=== PATIENT | male | born 1990 | race Caucasian/White ===

== ENCOUNTER 2018-12-11 19:56 | Emergency (ER) | payer BC, SELFPAY ==
[2018-12-11 19:57] VITALS: BP 128/84; PULSE 86; RESP 16; TEMP 37; O2SAT 97; BMI 34.0
[2018-12-11] MEDS: Tetracaine 0.5% Ophthalmic Bottle 1 DRP RIGHT EYE (21:58)
--- NOTE | 2018-12-11 22:40 | ED.DCSUM_ITS ---
- ER Visit Summary Date of Service: 12/11/18 Chief Complaint: Foreign body right eye History of Present Illness: The patient is a 28 M who presents with foreign body to his right eye that occurred yesterday. Patient states he was grinding on metal when something got into his eye. Patient states he was wearing his regular glasses but not safety glasses. Patient admits to some watery drainage. Patient admits to some redness and burning. Patient denies any visual changes. Patient states it still feels like there is something in his right eye. Patient wears glasses but does not wear contact lenses. Physical Examination: Vital signs are stable. Patient is afebrile. Patient is in no acute distress. Pupils are equal, round, and reactive to light bilaterally. Extraocular muscles are intact. Conjunctiva was injected on the right. There is a metallic foreign body on the lateral aspect of the right cornea at the 9 o'clock position. Anterior chamber was clear. There is no hyphema. Funduscopic exam was benign. Emergency Department Course and Treatment: Tetracaine was applied to the right eye. The metallic foreign body was removed with ophthalmic bur. There is a residual rust ring noted. I attempted to remove the rust ring however there is still some of the rust ring remaining. I do not feel comfortable going any further with the ophthalmic bur. Patient was given erythromycin ophthalmic ointment. Patient was instructed to follow-up with ophthalmology in 1-3 days. Patient was given a prescription for erythromycin ophthalmic ointment. Patient understood and was agreeable with the plan. All questions were answered. Disposition: Discharge home Impression: Corneal foreign body right eye This note was generated with [employer] dictation software. It may contain incorrect words, spelling, and punctuation that were not noted in review of the chart prior to signing ED Disposition - Plan for ED Patient: Disposition: Home or Assisted Living Chief Complaint: Foreign Body Diagnosis: Foreign body in cornea, right eye, initial encounter Instructions: ED Foreign Body Cornea Prescriptions: Erythromycin Ophthalmic 1 applic RIGHT EYE TID 3 Days #1 tube Referrals: Tesfaye Hernandez MD [Primary Care Provider] - Raheel Bishop MD [STAFF PHYSICIAN] - Additional Instructions: Follow-up with ophthalmology in 1-3 days. Call tomorrow to schedule an appointment.
[2018-12-11] MEDS: Diphth,Pertuss(Acell),Tet Vac 0.5 ML Vial IM (22:47)
[2018-12-11] MEDS: Erythromycin Base 1 OPTH.TUBE 1 APPLIC RIGHT EYE (23:19)
[2018-12-11 23:20] VITALS: BP 133/91; PULSE 80; RESP 16; O2SAT 98
--- OUTSIDE RECORDS SUMMARY | 2019-02-12 23:52 | XMS RPT_ITS ---
:1990 Author Organization [facility] Care Team Providers Name Role Phone JUANITA MOODY Attending Unavailable JUANITA MOODY Referring Unavailable JUANITA MOODY Attending Unavailable JUANITA MOODY Referring Unavailable MARY GONCALVES (PA) Attending Unavailable MARY GONCALVES (PA) Referring Unavailable JUANITA MOODY Referring Unavailable MARY GONCALVES (PA) Attending Unavailable JUANITA MOODY Referring Unavailable MARY GONCALVES (PA) Referring Unavailable Jose Alfredo Garcia Attending Unavailable Juanita Moody Primary Care Unavailable PROBLEMS PROBLEMS DATE TYPE CONDITION / CODE ATTENDING STATUS SOURCE 07/04/2018 Active Other abnormal NA Active [facility] glucose / [place] R73.09(ICD-10) Repository 08/29/2018 Active Radiculopathy, NA Active [facility] lumbar region / [place] M54.16(ICD-10) Repository 08/29/2018 Active Unspecified fall, NA Active [facility] initial encounter [place] / W19.XXXA(ICD-10) Repository 06/07/2018 Active Essential NA Active [facility] (primary) [place] hypertension / Repository I10(ICD-10) 06/07/2018 Active Encounter for NA Active [facility] screening for [place] diabetes mellitus Repository / Z13.1(ICD-10) 06/07/2018 Active Unknown / JUANITA MOODY Active [facility] UNK(Unknown) A [place] Repository PROCEDURES PROCEDURES No Procedure Records FoundRESULTS RESULTS EMERGENCY DEPARTMENT Observed: 12/11/2018 Status: F Source: [place] SUMMARY 10:40 PM [facility] [place], [place] REPOSITORY [facility] Medical Records Department [address] [place] [address] Emergency Department Summary 12/11/18 2234 MR#: [id number] Acct: [id number] Name: NATHALIA GALARZA Rep #: [id number] : 1990 28 From: Jose Alfredo Garcia DO PCP: Juanita Moody MD Status: REG ER - ER Visit Summary Date of Service: 12/11/18 Chief Complaint: Foreign body right eye History of Present Illness: The patient is a 28 M who presents with foreign body to his right eye that occurred yesterday. Patient states he was grinding on metal when something got into his eye. Patient states he was wearing his regular glasses but not safety glasses. Patient admits to some watery drainage. Patient admits to some redness and burning. Patient denies any visual changes. Patient states it still feels like there is something in his right eye. Patient wears glasses but does not wear contact lenses. Physical Examination: Vital signs are stable. Patient is afebrile. Patient is in no acute distress. Pupils are equal, round, and reactive to light bilaterally. Extraocular muscles are intact. Conjunctiva was injected on the right. There is a metallic foreign body on the lateral aspect of the right cornea at the 9 o'clock position. Anterior chamber was clear. There is no hyphema. Funduscopic exam was benign. Emergency Department Course and Treatment: Tetracaine was applied to the right eye. The metallic foreign body was removed with ophthalmic bur. There is a residual rust ring noted. I attempted to remove the rust ring however there is still some of the rust ring remaining. I do not feel comfortable going any further with the ophthalmic bur. Patient was given erythromycin ophthalmic ointment. Patient was instructed to follow-up with ophthalmology in 1-3 days. Patient was given a prescription for erythromycin ophthalmic ointment. Patient understood and was agreeable with the plan. All questions were answered. Disposition: Discharge home Impression: Corneal foreign body right eye This note was generated with Linkdex dictation software. It may contain incorrect words, spelling, and punctuation that were not noted in review of the chart prior to signing ED Disposition - Plan for ED Patient: Disposition: Home or Assisted Living Chief Complaint: Foreign Body Diagnosis: Foreign body in cornea, right eye, initial encounter Instructions: ED Foreign Body Cornea Prescriptions: Erythromycin Ophthalmic 1 applic RIGHT EYE TID 3 Days #1 tube Referrals: Juanita Moody MD [Primary Care Provider] - Raheel Bishop MD [STAFF PHYSICIAN] - Additional Instructions: Follow-up with ophthalmology in 1-3 days. Call tomorrow to schedule an appointment. What to do if you have Problems For any increased pain, shortness of breath, bleeding, nausea or vomiting, chest pain, or any unexpected problems, contact your Primary Care Provider. Call [facility] ([phone]) or report to the closest Emergency Room. Call 911 if necessary. 12/11/18 0 <Electronically signed by Jose Alfredo Garcia DO> Date Jose Alfredo Garcia DO Cosigner Signature (If Indicated): Date CC: Juanita Moody MD PROGRESS Observed: 11/28/2018 Status: COMPLETED Source: [place] 9:[address] [facility] [place] REPOSITORY [facility] ID: [id number] Author: Hair Yarbrough LPN Service: (none) Author Type: (none) Type: Progress Notes Filed: 11/28/2018 9:28 AM Note Text: Manual Readin/88 Pulse: 88 Reason for blood pressure check - Medication adjustment. Lisinopril was increased from 10mg to 20mg on 11/07/18 at OV with Sacha d/t pt was having headaches AND dizziness upon standing. Pt reports med has helped to improve symptoms, has headaches occasionally if he stands up too quickly or he is trying to do something quickly, MCKINNEY goes away right away. Next appt 03/06/19 with RRobinson. Pt is not a smoker, pt is alert AND oriented. Patient is: Taking medication as prescribed Yes Took medication today Yes If no, date medication last taken na Experiencing side effects No Pt has been identified by name and birthdate: Yes Allergies reviewed: Yes Latex allergy: no. Medication - prescribed and OTC reviewed and updated: Yes Do you need any prescription refills prior to your next visit: No Health Maintenance: Reviewed and not up to date and provider notified Pt aware he will receive phone call from office after pcp reviews BP reading today. Hair Yarbrough LPN CNNURSE Observed: 11/28/2018 Status: COMPLETED Source: [place] 9:15 AM [facility] REPOSITORY Nurse Visit (FAMPWS) NATHALIA GALARZA ([id number]) 1990 M Date Time Provider Department [facility]/28[facility]18 9[facility] During your visit today, we recorded the following information about you: Pulse Blood pressure 88/minute 120/88 Hair Yarbrough LPN 11/28/2018 9:28 AM Signed Manual Readin/88 Pulse: 88 Reason for blood pressure check - Medication adjustment. Lisinopril was increased from 10mg to 20mg on 11/07/18 at OV with Sacha d/agustina pt was having headaches AND dizziness upon standing. Pt reports med has helped to improve symptoms, has headaches occasionally if he stands up too quickly or he is trying to do something quickly, MCKINNEY goes away right away. Next appt 03/06/19 with Fedeon. Pt is not a smoker, pt is alert AND oriented. Patient is: Taking medication as prescribed Yes Took medication today Yes If no, date medication last taken na Experiencing side effects No Pt has been identified by name and birthdate: Yes Allergies reviewed: Yes Latex allergy: no. Medication - prescribed and OTC reviewed and updated: Yes Do you need any prescription refills prior to your next visit: No Health Maintenance: Reviewed and not up to date and provider notified Pt aware he will receive phone call from office after pcp reviews BP reading today. Hair Yarbrough LPN Referring Provider: MARY GONCALVES(WATSON) [[id number]] Allergies As of Date: 11/28/2018 Noted Allergy Reaction IBUPROFEN 06/07/2018 4 - Hives Date Reviewed: 11/28/2018 Reviewed by: Hair Yarbrough LPN - Fully Assessed Reason for Visit: Blood Pressure Check [195] Visit Diagnosis:Hypertension, essential [I10] Prescriptions as of 11/28/2018 Sig: CYCLOBENZAPRINE 10 MG TABLET Take 1 tablet by mouth three * LISINOPRIL 20 MG TABLET Take 1 tablet by mouth once d* Problem List As Of Date 11/28/2018 Noted Resolved Encounter for screening for diabetes mellitus [*INVALID FOR* Essential hypertension [I10] INVALID FOR* Elevated hemoglobin A1c [R73.09] INVALID FOR* Encounter Status:Closed by HAIR YARBROUGH LPN on 11/28/18 PROGRESS Observed: 11/07/2018 Status: COMPLETED Source: [place] 8:[address] [facility] [place] REPOSITORY [facility] ID: [id number] Author: Heather Goncalves Service: (none) Author Type: Physician Pretzel Cooker Type: Progress Notes Filed: 11/07/2018 9:29 AM Note Text: Chief Complaint Patient presents with: Recheck HPI Nathalia Galarza is a 28 year old male who presents here today for Chronic Medical Conditions.. Patient was started on lisinopril 10mg. Has been tolerating. Does not check at home Recently has been getting more headaches again. Worse with activity then goes away when he rests. Hgb a1c has gone up to 6.1. He does not monitor his diet at home. Last 4 Encounter Wt Readings: Date: Wt: 11/07/2018 115.2 kg (254 lb) 08/29/2018 108.9 kg (240 lb) 07/04/2018 107 kg (236 lb) 06/07/2018 107 kg (236 lb) Back is still causing him pain. Works a physical job on a farm. Past medical history, appointments, medications, allergies reviewed. Previous Medical History PAST MEDICAL HISTORY Diagnosis Date - Essential hypertension 06/07/2018 Previous Surgical History PAST SURGICAL HISTORY Procedure Laterality Date - APPENDECTOMY HX 05/28/2016 Family History FAMILY HISTORY Problem Relation Age of Onset - Hypertension Mother - Hypertension Father - Prostate Cancer Paternal Grandfather 70 - Ovarian cancer Maternal Aunt - Diabetes Maternal Aunt Patient Allergies ALLERGIES Allergen Reactions - Ibuprofen Hives Current Medications Current Outpatient Prescriptions on File Prior to Visit: cyclobenzaprine (FLEXERIL) 10 mg tablet Take 1 tablet by mouth three times daily as needed for Muscle Spasm. lisinopril (ZESTRIL, PRINIVIL) 10 mg tablet Take 1 tablet by mouth once daily. No current facility-administered medications on file prior to visit. Social History Social History Marital status: Spouse name: Years of education: Number of children: Social History Main Topics Smoking status: Never Smoker Smokeless tobacco: Never Used Alcohol use: No Drug use: No Sexual activity: Yes Partners with: Female control/protection: Pill Review of Symptoms REVIEW OF SYSTEMS As above. EXAM: BP 134/88 Pulse 76 Resp 12 Wt 115.2 kg (254 lb) BMI 34.45 kg/m? General Appearance: Well appearing, alert, in no acute distress, well-hydrated, well nourished.. Neck: Supple, no adenopathy; thyroid symmetric, normal size, no bruits. Lungs: lungs clear to auscultation. No wheezing, rhonchi, rales. Heart: RRR without murmur, gallop, or rubs. No ectopy. Extremities: No deformities, edema, skin discoloration, clubbing or cyanosis. Good capillary refill. . Peripheral Pulses: Normal. Health Maintenance List BP CONTROLLED (<130/80) due on 2009 DTAP,TDAP,TD(1 - Tdap) due on 2010 ANNUAL PCP TEAM CHRONIC DISEASE VISIT due on 08/29/2019 INFLUENZA Completed Data reviewed Component Latest Ref Rng AND Units 06/07/2018 11/05/2018 Protein, Total 6.3 - 8.0 g/dL 7.6 Albumin 3.9 - 4.9 g/dL 4.5 Calcium 8.5 - 10.2 mg/dL 9.7 Bilirubin, Total 0.2 - 1.3 mg/dL 0.4 Alkaline Phosphatase 36 - 108 U/L 69 AST 14 - 40 U/L 28 Glucose 74 - 99 mg/dL 84 BUN 9 - 24 mg/dL 10 Creatinine 0.73 - 1.22 mg/dL 1.08 Sodium 136 - 144 mmol/L 137 Potassium 3.7 - 5.1 mmol/L 4.0 Chloride 97 - 105 mmol/L 100 CO2 22 - 30 mmol/L 28 Anion Gap 9 - 18 mmol/L 9 ALT 10 - 54 U/L 39 eGFR- >60 eGFR-All Other Races . >60 Color Yellow Yellow Clarity Clear Cloudy (A) Glucose, Urine Negative mg/dL Negative Bilirubin, Urine Negative Negative Ketones, Urine Negative Negative Specific [place], Ur 1.005 - 1.030 1.025 Hemoglobin/Blood,Ur Negative Negative pH, Urine 4.5 - 8.0 6.0 Protein, Urine Negative mg/dL Negative Urobilinogen Normal Normal Nitrites Negative Negative Leukest Negative Negative Comments SEE COMMENT Urine Haresh Comment SEE COMMENT WBC, Urine 0 - 5 /HPF 0-5 RBC, Urine 0 - 3 /HPF 0-3 Crystal 0 /HPF SEE COMMENT (A) Cholesterol, Total <200 mg/dL 206 (H) Triglyceride <150 mg/dL 153 (H) HDL Cholesterol >39 mg/dL 46 LDL Cholesterol <100 mg/dL 129 (H) Non HDL Cholesterol <130 mg/dL 160 (H) Fasting Time hrs 14 VLDL Cholesterol <30 mg/dL 31 (H) TC:HDL Ratio <5.10 4.48 LDL:HDL Ratio <2.54 2.80 (H) Hemoglobin A1C 4.3 - 5.6 % 5.8 (H) 6.1 (H) Estimated Average Glucose mg/dL 120 128 ASSESSMENT/PLAN: 1. Essential hypertension - ICD9: 401.9, ICD10: I10 (primary diagnosis) - suboptimal control - Worsening, possibly due to significant weight gain - Increase lisinopril (Zestril/Prinivil) - Recommended regular aerobic exercise. - Recommend home blood pressure monitoring, to bring results in on next visit - Goal of BP <130/80 - URINALYSIS WITH MICROSCOPIC - BASIC METABOLIC PNL 2. Elevated hemoglobin A1c - ICD9: 790.29, ICD10: R73.09 Worse compared to last check Discussed importance of healthy lifestyle changes and decreasing carb and sugars - HGB A1C 3. Hyperlipidemia, mixed - ICD9: 272.2, ICD10: E78.2 - to be determined upon return of lab results - Encouraged following a low carbohydrate, healthy oil intake diet. - Continue current therapy. - LIPID PANEL BASIC 4. Recurrent low back pain - ICD9: 724.2, ICD10: M54.5 Discussed Physical Therapy but patient declines Patient can take OTC aleve prn 5. Obesity, Class I, BMI 30-34.9 - ICD9: 278.00, ICD10: E66.9 20pound weight gain in 4-6months Discussed need and benefit of weight loss Recheck BP in 3 weeks Follow up with OV in 4 months. Labs prior. MARY GONCALVES PA-C CNOV Observed: 11/07/2018 Status: COMPLETED Source: [place] 8:00 AM [facility] REPOSITORY Office Visit (FAMPWS) NATHALIA GALARZA ([id number]) 1990 M Date Time Provider Department 11/07/18 8:00 AM RADHA GONCALVES) FAMPWS During your visit today, we recorded the following information about you: Pulse Respiration Blood pressure Weight 76/minute 12/minute 134/88 115.2 kg MARY GONCALVES PA-C 11/07/2018 9:29 AM Signed Chief Complaint Patient presents with: Recheck HPI Nathalia Ana Youagustina is a 28 year old male who presents here today for Chronic Medical Conditions.. Patient was started on lisinopril 10mg. Has been tolerating. Does not check at home Recently has been getting more headaches again. Worse with activity then goes away when he rests. Hgb a1c has gone up to 6.1. He does not monitor his diet at home. Last 4 Encounter Wt Readings: Date: Wt: 11/07/2018 115.2 kg (254 lb) 08/29/2018 108.9 kg (240 lb) 07/04/2018 107 kg (236 lb) 06/07/2018 107 kg (236 lb) Back is still causing him pain. Works a physical job on a farm. Past medical history, appointments, medications, allergies reviewed. Previous Medical History PAST MEDICAL HISTORY Diagnosis Date - Essential hypertension 06/07/2018 Previous Surgical History PAST SURGICAL HISTORY Procedure Laterality Date - APPENDECTOMY HX 05/28/2016 Family History FAMILY HISTORY Problem Relation Age of Onset - Hypertension Mother - Hypertension Father - Prostate Cancer Paternal Grandfather 70 - Ovarian cancer Maternal Aunt - Diabetes Maternal Aunt Patient Allergies ALLERGIES Allergen Reactions - Ibuprofen Hives Current Medications Current Outpatient Prescriptions on File Prior to Visit: cyclobenzaprine (FLEXERIL) 10 mg tablet Take 1 tablet by mouth three times daily as needed for Muscle Spasm. lisinopril (ZESTRIL, PRINIVIL) 10 mg tablet Take 1 tablet by mouth once daily. No current facility-administered medications on file prior to visit. Social History Social History Marital status: Spouse name: Years of education: Number of children: Social History Main Topics Smoking status: Never Smoker Smokeless tobacco: Never Used Alcohol use: No Drug use: No Sexual activity: Yes Partners with: Female control/protection: Pill Review of Symptoms REVIEW OF SYSTEMS As above. EXAM: BP 134/88 Pulse 76 Resp 12 Wt 115.2 kg (254 lb) BMI 34.45 kg/m? General Appearance: Well appearing, alert, in no acute distress, well-hydrated, well nourished.. Neck: Supple, no adenopathy; thyroid symmetric, normal size, no bruits. Lungs: lungs clear to auscultation. No wheezing, rhonchi, rales. Heart: RRR without murmur, gallop, or rubs. No ectopy. Extremities: No deformities, edema, skin discoloration, clubbing or cyanosis. Good capillary refill. . Peripheral Pulses: Normal. Health Maintenance List BP CONTROLLED (<130/80) due on 2009 DTAP,TDAP,TD(1 - Tdap) due on 2010 ANNUAL PCP TEAM CHRONIC DISEASE VISIT due on 08/29/2019 INFLUENZA Completed Data reviewed Component Latest Ref Rng AND Units 06/07/2018 11/05/2018 Protein, Total 6.3 - 8.0 g/dL 7.6 Albumin 3.9 - 4.9 g/dL 4.5 Calcium 8.5 - 10.2 mg/dL 9.7 Bilirubin, Total 0.2 - 1.3 mg/dL 0.4 Alkaline Phosphatase 36 - 108 U/L 69 AST 14 - 40 U/L 28 Glucose 74 - 99 mg/dL 84 BUN 9 - 24 mg/dL 10 Creatinine 0.73 - 1.22 mg/dL 1.08 Sodium 136 - 144 mmol/L 137 Potassium 3.7 - 5.1 mmol/L 4.0 Chloride 97 - 105 mmol/L 100 CO2 22 - 30 mmol/L 28 Anion Gap 9 - 18 mmol/L 9 ALT 10 - 54 U/L 39 eGFR- >60 eGFR-All Other Races . >60 Color Yellow Yellow Clarity Clear Cloudy (A) Glucose, Urine Negative mg/dL Negative Bilirubin, Urine Negative Negative Ketones, Urine Negative Negative Specific [place], Ur 1.005 - 1.030 1.025 Hemoglobin/Blood,Ur Negative Negative pH, Urine 4.5 - 8.0 6.0 Protein, Urine Negative mg/dL Negative Urobilinogen Normal Normal Nitrites Negative Negative Leukest Negative Negative Comments SEE COMMENT Urine Haresh Comment SEE COMMENT WBC, Urine 0 - 5 /HPF 0-5 RBC, Urine 0 - 3 /HPF 0-3 Crystal 0 /HPF SEE COMMENT (A) Cholesterol, Total <200 mg/dL 206 (H) Triglyceride <150 mg/dL 153 (H) HDL Cholesterol >39 mg/dL 46 LDL Cholesterol <100 mg/dL 129 (H) Non HDL Cholesterol <130 mg/dL 160 (H) Fasting Time hrs 14 VLDL Cholesterol <30 mg/dL 31 (H) TC:HDL Ratio <5.10 4.48 LDL:HDL Ratio <2.54 2.80 (H) Hemoglobin A1C 4.3 - 5.6 % 5.8 (H) 6.1 (H) Estimated Average Glucose mg/dL 120 128 ASSESSMENT/PLAN: 1. Essential hypertension - ICD9: 401.9, ICD10: I10 (primary diagnosis) - suboptimal control - Worsening, possibly due to significant weight gain - Increase lisinopril (Zestril/Prinivil) - Recommended regular aerobic exercise. - Recommend home blood pressure monitoring, to bring results in on next visit - Goal of BP <130/80 - URINALYSIS WITH MICROSCOPIC - BASIC METABOLIC PNL 2. Elevated hemoglobin A1c - ICD9: 790.29, ICD10: R73.09 Worse compared to last check Discussed importance of healthy lifestyle changes and decreasing carb and sugars - HGB A1C 3. Hyperlipidemia, mixed - ICD9: 272.2, ICD10: E78.2 - to be determined upon return of lab results - Encouraged following a low carbohydrate, healthy oil intake diet. - Continue current therapy. - LIPID PANEL BASIC 4. Recurrent low back pain - ICD9: 724.2, ICD10: M54.5 Discussed Physical Therapy but patient declines Patient can take OTC aleve prn 5. Obesity, Class I, BMI 30-34.9 - ICD9: 278.00, ICD10: E66.9 20pound weight gain in 4-6months Discussed need and benefit of weight loss Recheck BP in 3 weeks Follow up with OV in 4 months. Labs prior. WATSON LIMA PA-C 11/07/2018 8:44 AM Signed Return in 3 weeks for BP check Follow up in 4 months for routine visit. Fasting lab work prior. Referring Provider: JUANITA MOODY [[id number]] Allergies As of Date: 11/07/2018 Noted Allergy Reaction IBUPROFEN 06/07/2018 4 - Hives Date Reviewed: 11/07/2018 Reviewed by: Radha) Sacha - Fully Assessed Reason for Visit: Recheck [92] Primary Visit Diagnosis:Essential hypertension [I10] Other Visit Diagnoses:Elevated hemoglobin A1c [R73.09] Hyperlipidemia, mixed [E78.2] Recurrent low back pain [M54.5] Obesity, Class I, BMI 30-34.9 [E66.9] Order(s):cyclobenzaprine (FLEXERIL) 10 mg tabletTake 1 tablet by mouth three times daily as needed for Muscle Spasm.Disp: 30 tabletRfl: 1 lisinopril (ZESTRIL, PRINIVIL) 20 mg tabletTake 1 tablet by mouth once daily.Disp: 30 tabletRfl: 3 HGB A1C [CSCRT2F] Order #: [id number] FUTURE URINALYSIS WITH MICROSCOPIC [SQUAWMIC] Order #: [id number] FUTURE BASIC METABOLIC PNL [SQBMP] Order #: [id number] FUTURE LIPID PANEL BASIC [SQLIPB] Order #: [id number] FUTURE Prescriptions as of 11/07/2018 Sig: CYCLOBENZAPRINE 10 MG TABLET Take 1 tablet by mouth three * LISINOPRIL 20 MG TABLET Take 1 tablet by mouth once d* Problem List As Of Date 11/07/2018 Noted Resolved Encounter for screening for diabetes mellitus [*INVALID FOR* Essential hypertension [I10] INVALID FOR* Elevated hemoglobin A1c [R73.09] INVALID FOR* Other instructions from your clinician: Return in 3 weeks for BP check Follow up in 4 months for routine visit. Fasting lab work prior. Prescriptions ordered this encounter Disp Refills Start End CYCLOBENZAPRINE 10 MG TABLET 30 t* 1 11/07/2018 Route: ORAL Sig: Take 1 tablet by mouth three times daily as needed for Muscle Spasm. LISINOPRIL 20 MG TABLET 30 t* 3 11/07/2018 Route: ORAL Sig: Take 1 tablet by mouth once daily. Medications Discontinued During This Encounter cyclobenzaprine (FLEXERIL) 10 mg tab* 30 t* 0 08/29/2018 11/07/2018 Route: ORAL Sig: Take 1 tablet by mouth three times daily as needed for Muscle Spasm. Disc: Reason for discontinue is not on file. lisinopril (ZESTRIL, PRINIVIL) 10 mg* 30 t* 5 06/07/2018 11/07/2018 Route: ORAL Sig: Take 1 tablet by mouth once daily. Disc: Reason for discontinue is not on file. Disposition: Return in about 3 weeks (around 11/28/2018) for [place] BP CHECK. Follow-up and Disposition History Recorded Encounter Status:Closed by MARY CHANCE on 11/07/18 HEMOGLOBIN A1C Collected: 11/05/2018 Status: F Source: [place] 3:23 PM [facility] REPOSITORY TYPE CODE TESTS RESULT OUT OF REFERENCE UNITS RANGE LAB HGBA1C 4.3-5.6 % High Hemoglobin A1c 6.1 Result Comment: [place] [employer] guidelines indicate that patients with HgbA1c in the range 5.7-6.4% are at increased risk for development of diabetes, and intervention by lifestyle modification may be beneficial. HgbA1c greater or equal to 6.5% is considered diagnostic of diabetes. LAB HBA0 mg/dL Est. Average Glucose 128 Result Comment: eAG: (Estimated average glucose) is a calculated value from HgbA1c and is traveling sales representative of the average blood glucose level in the last 2-3 month period. Performed By: #### HBA1C #### [facility] [address] [place], [place] [address] XR LUMBAR 3V Observed: 08/29/2018 Status: F Source: [place] AP/LAT/L5-S1 9:35 AM [facility] REPOSITORY * * *Final Report* * * DATE OF EXAM: Aug 29 2018 9:35AM WOX [id number] - XR LUMBAR 3V AP/LAT/L5-S1 / PROCEDURE REASON: multiple diagnoses * * * * Physician Interpretation * * * * LUMBAR SPINE/sacrum and coccyx: HISTORY: 28 years old Indication: Lumbar back pain with radiculopathy affecting left lower extremity Fall, initial encounter Fell off a truck last Monday. right posterior low back pain TECHNIQUE: Views obtained: XR SACRUM/COCCYX 3V AP/LAT, XR LUMBAR 3V AP/LAT/L5-S1 Comparison: None. RESULT: Findings: Lumbar spine: Bone density well-preserved. Mild degenerative changes in the facet joints L5-S1 level bilaterally. No narrowing of the disk spaces is seen. Mild S scoliosis with convexity to the RIGHT in the lumbar region.. No fractures or dislocations are seen. Sacrum and coccyx: No fractures or dislocations. IMPRESSION: Mild degenerative changes. Mild S-shaped scoliosis as discussed Line Tester: BELEN Transcribe Date/Time: Aug 29 2018 12:44P Dictated by : DAX WILSON DO This examination was interpreted and the report reviewed and electronically signed by: DAX WILSON DO on Aug 29 2018 12:45PM EST [id number] XR SACRUM/COCCYX 3V Observed: 08/29/2018 Status: F Source: [place] AP/LAT 9:35 AM [facility] REPOSITORY * * *Final Report* * * DATE OF EXAM: Aug 29 2018 9:35AM WOX [id number] - XR SACRUM/COCCYX 3V AP/LAT / PROCEDURE REASON: multiple diagnoses * * * * Physician Interpretation * * * * LUMBAR SPINE/sacrum and coccyx: HISTORY: 28 years old Indication: Lumbar back pain with radiculopathy affecting left lower extremity Fall, initial encounter Fell off a truck last Monday. right posterior low back pain TECHNIQUE: Views obtained: XR SACRUM/COCCYX 3V AP/LAT, XR LUMBAR 3V AP/LAT/L5-S1 Comparison: None. RESULT: Findings: Lumbar spine: Bone density well-preserved. Mild degenerative changes in the facet joints L5-S1 level bilaterally. No narrowing of the disk spaces is seen. Mild S scoliosis with convexity to the RIGHT in the lumbar region.. No fractures or dislocations are seen. Sacrum and coccyx: No fractures or dislocations. IMPRESSION: Mild degenerative changes. Mild S-shaped scoliosis as discussed Line Tester: BELEN Transcribe Date/Time: Aug 29 2018 12:44P Dictated by : DAX WILSON DO This examination was interpreted and the report reviewed and electronically signed by: DAX WILOSN DO on Aug 29 2018 12:45PM EST [id number] PROGRESS Observed: 08/29/2018 Status: COMPLETED Source: [place] 9:22 AM [facility] REPOSITORY HNO ID: [id number] Author: Rosey Machado Service: (none) Author Type: (none) Type: Progress Notes Filed: 08/29/2018 9:36 AM Note Text: Radiology Service Progress Note PATIENT NAME: Nathalia Galarza DATE OF SERVICE: August 29, 2018 TIME: 9:22 AM PATIENT IDENTITY VERIFICATION COMPLETED USING TWO (2) METHODS: Patient confirmed name verbally and Date of . PATIENT GENDER DATA: Male PATIENT RELEVANT IMPLANT DATA REVIEWED: Not Applicable RADIOLOGY DEPARTMENT: General X-ray: Exam(s) Completed: Spine X-Ray(s): Lumbar AP / LAT / L5-S1 and Sacrum/Coccyx PERIPHERAL IV DATA: Not applicable SIGNED BY: Rosey Machado August 29, 2018 9:22 AM PROGRESS Observed: 08/29/2018 Status: COMPLETED Source: [place] 8:54 AM [facility] REPOSITORY HNO ID: [id number] Author: Heather Goncalves Service: (none) Author Type: Physician Pretzel Cooker Type: Progress Notes Filed: 08/29/2018 9:47 AM Note Text: Chief Complaint Patient presents with: Pain: Patient is here for lower back; x couple months; back popped got lighted headed. HPI Nathalia Galarza is a 28 year old male who presents here today for Above Complaints.. Has had back pain for the past couple months. 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 Last week was lifting at work (08/23) and felt a pop Symptoms are center and radiates into left side more. Some numbness in legs. Has been using icy hot which does help. Bending over or getting up makes pain worse. Denies loss of bowel or urine Past medical history, appointments, medications, allergies reviewed. Previous Medical History PAST MEDICAL HISTORY Diagnosis Date - Essential hypertension 06/07/2018 Previous Surgical History PAST SURGICAL HISTORY Procedure Laterality Date - APPENDECTOMY HX 05/28/2016 Family History FAMILY HISTORY Problem Relation Age of Onset - Hypertension Mother - Hypertension Father - Prostate Cancer Paternal Grandfather 70 - Ovarian cancer Maternal Aunt - Diabetes Maternal Aunt Patient Allergies ALLERGIES Allergen Reactions - Ibuprofen Hives Current Medications Current Outpatient Prescriptions on File Prior to Visit: lisinopril (ZESTRIL, PRINIVIL) 10 mg tablet Take 1 tablet by mouth once daily. No current facility-administered medications on file prior to visit. Social History Social History Marital status: Spouse name: Years of education: Number of children: Social History Main Topics Smoking status: Never Smoker Smokeless tobacco: Never Used Alcohol use: No Drug use: No Sexual activity: Yes Partners with: Female control/protection: Pill Review of Symptoms REVIEW OF SYSTEMS NECK: Negative for lumps, goiter, pain and significant neck swelling MUSCULOSKELETAL:See HPI NEURO: No history of headaches, syncope, paralysis, seizures or tremors and see HPI EXAM: BP 128/86 (BP Site: Left Arm, BP Position: Sitting, BP Cuff Size: Large Adult) Pulse 86 Temp 36.9 ?C (98.4 ?F) (Tympanic) Resp 14 Wt 108.9 kg (240 lb) BMI 32.55 kg/m? General Appearance: Well appearing, alert, in no acute distress, well-hydrated, well nourished.. Musculoskeletal: Pain with palp of low mid back and left lateral paraspinous muscles. SLR pos for pain only. Decreased Lumbar ROM due to pain. NVI. Peripheral Pulses: Normal. Neurologic: Gait normal. Reflexes normal and symmetric. Sensation grossly intact.. Health Maintenance List DTAP,TDAP,TD(1 - Tdap) due on 2010 ANNUAL PCP TEAM CHRONIC DISEASE VISIT due on 07/04/2019 BP CONTROLLED (<130/80) due on 07/04/2019 INFLUENZA Completed Data reviewed n/a ASSESSMENT/PLAN: 1. Lumbar back pain with radiculopathy affecting left lower extremity - ICD9: 724.4, ICD10: M54.16 (primary diagnosis) Acute on chronic Post injury so will get x-ray X-ray today Start prednisone and muscle relaxer. - XR LUMBAR GENERAL 3V AP/LAT/L5-S1 - XR SACRUM/COCCYX 3V AP/LAT 2. Fall, initial encounter - ICD9: E888.9, ICD10: W19.XXXA See above - XR LUMBAR GENERAL 3V AP/LAT/L5-S1 - XR SACRUM/COCCYX 3V AP/LAT Prescription instructions reviewed with patient as applicable. Patient advised if symptoms do not improve or if symptoms worsen sooner, to contact their primary care physician. Potential red flag symptoms discussed with the patient. Reviewed appropriate action plan to take if red flag symptoms occur. Patient agreeable to treatment plan. MARY GONCALVES PA-C CNOV Observed: 08/29/2018 Status: COMPLETED Source: [place] 8:40 AM [facility] REPOSITORY Office Visit ([facility]) NATHALIA GALARZA ([id number]) 1990 M Date Time Provider Department 08/29/18 8:40 AM RADHA GONCALVES) [facility] During your visit today, we recorded the following information about you: Temperature Pulse Respiration Blood pressure 98.4 degrees 86/minute 14/minute 128/86 Weight 108.9 kg MARY GONCALVES PA-C 08/29/2018 9:47 AM Signed Chief Complaint Patient presents with: Pain: Patient is here for lower back; x couple months; back popped got lighted headed. ANIL Nathalia Caseyedgardoagustina is a 28 year old male who presents here today for Above Complaints.. Has had back pain for the past couple months. 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 Last week was lifting at work (08/23) and felt a pop Symptoms are center and radiates into left side more. Some numbness in legs. Has been using icy hot which does help. Bending over or getting up makes pain worse. Denies loss of bowel or urine Past medical history, appointments, medications, allergies reviewed. Previous Medical History PAST MEDICAL HISTORY Diagnosis Date - Essential hypertension 06/07/2018 Previous Surgical History PAST SURGICAL HISTORY Procedure Laterality Date - APPENDECTOMY HX 05/28/2016 Family History FAMILY HISTORY Problem Relation Age of Onset - Hypertension Mother - Hypertension Father - Prostate Cancer Paternal Grandfather 70 - Ovarian cancer Maternal Aunt - Diabetes Maternal Aunt Patient Allergies ALLERGIES Allergen Reactions - Ibuprofen Hives Current Medications Current Outpatient Prescriptions on File Prior to Visit: lisinopril (ZESTRIL, PRINIVIL) 10 mg tablet Take 1 tablet by mouth once daily. No current facility-administered medications on file prior to visit. Social History Social History Marital status: Spouse name: Years of education: Number of children: Social History Main Topics Smoking status: Never Smoker Smokeless tobacco: Never Used Alcohol use: No Drug use: No Sexual activity: Yes Partners with: Female control/protection: Pill Review of Symptoms REVIEW OF SYSTEMS NECK: Negative for lumps, goiter, pain and significant neck swelling MUSCULOSKELETAL:See HPI NEURO: No history of headaches, syncope, paralysis, seizures or tremors and see HPI EXAM: BP 128/86 (BP Site: Left Arm, BP Position: Sitting, BP Cuff Size: Large Adult) Pulse 86 Temp 36.9 ?C (98.4 ?F) (Tympanic) Resp 14 Wt 108.9 kg (240 lb) BMI 32.55 kg/m? General Appearance: Well appearing, alert, in no acute distress, well-hydrated, well nourished.. Musculoskeletal: Pain with palp of low mid back and left lateral paraspinous muscles. SLR pos for pain only. Decreased Lumbar ROM due to pain. NVI. Peripheral Pulses: Normal. Neurologic: Gait normal. Reflexes normal and symmetric. Sensation grossly intact.. Health Maintenance List DTAP,TDAP,TD(1 - Tdap) due on 2010 ANNUAL PCP TEAM CHRONIC DISEASE VISIT due on 07/04/2019 BP CONTROLLED (<130/80) due on 07/04/2019 INFLUENZA Completed Data reviewed n/a ASSESSMENT/PLAN: 1. Lumbar back pain with radiculopathy affecting left lower extremity - ICD9: 724.4, ICD10: M54.16 (primary diagnosis) Acute on chronic Post injury so will get x-ray X-ray today Start prednisone and muscle relaxer. - XR LUMBAR GENERAL 3V AP/LAT/L5-S1 - XR SACRUM/COCCYX 3V AP/LAT 2. Fall, initial encounter - ICD9: E888.9, ICD10: W19.XXXA See above - XR LUMBAR GENERAL 3V AP/LAT/L5-S1 - XR SACRUM/COCCYX 3V AP/LAT Prescription instructions reviewed with patient as applicable. Patient advised if symptoms do not improve or if symptoms worsen sooner, to contact their primary care physician. Potential red flag symptoms discussed with the patient. Reviewed appropriate action plan to take if red flag symptoms occur. Patient agreeable to treatment plan. WATSON LIMA PA-C 08/29/2018 9:13 AM Signed Follow up in 2 weeks if no improvement Sooner if worsening. Referring Provider: SELF [[id number]] Allergies As of Date: 08/29/2018 Noted Allergy Reaction IBUPROFEN 06/07/2018 4 - Hives Date Reviewed: 07/04/2018 Reviewed by: Juanita Moody - Fully Assessed Reason for Visit: Pain [78] Cmt: Patient is here for lower back; x couple months; back popped got lighted headed. Primary Visit Diagnosis:Lumbar back pain with radiculopathy affecting left lower extremity [M54.16] Other Visit Diagnosis:Fall, initial encounter [W19.XXXA] Order(s):predniSONE (DELTASONE) 10 mg tabletTake 4 tabs daily for 3 days, then 2 tabs daily for 3 days, then 1 tab daily for 3 days with food.Disp: 21 tabletRfl: 0 XR LUMBAR GENERAL 3V AP/LAT/L5-S1 [[id number]] Order #: [id number] FUTURE XR SACRUM/COCCYX 3V AP/LAT [[id number]] Order #: [id number] FUTURE cyclobenzaprine (FLEXERIL) 10 mg tabletTake 1 tablet by mouth three times daily as needed for Muscle Spasm.Disp: 30 tabletRfl: 0 Prescriptions as of 08/29/2018 Sig: LISINOPRIL 10 MG TABLET Take 1 tablet by mouth once d* PREDNISONE 10 MG TABLET Take 4 tabs daily for 3 days,* CYCLOBENZAPRINE 10 MG TABLET Take 1 tablet by mouth three * Problem List As Of Date 08/29/2018 Noted Resolved Encounter for screening for diabetes mellitus [*INVALID FOR* Essential hypertension [I10] INVALID FOR* Priority: A Elevated hemoglobin A1c [R73.09] INVALID FOR* Other instructions from your clinician: Follow up in 2 weeks if no improvement Sooner if worsening. Prescriptions ordered this encounter Disp Refills Start End PREDNISONE 10 MG TABLET 21 t* 0 08/29/2018 09/07/2018 Sig: Take 4 tabs daily for 3 days, then 2 tabs daily for 3 days, then 1 tab daily for 3 days with food. CYCLOBENZAPRINE 10 MG TABLET 30 t* 0 08/29/2018 Route: ORAL Sig: Take 1 tablet by mouth three times daily as needed for Muscle Spasm. Disposition: Return in about 2 weeks (around 09/12/2018), or if symptoms worsen or fail to improve. Follow-up and Disposition History Recorded Letter Text Mary Goncalves PA-C [address], [place] [address] 08/29/2018 Nathalia Galarza [facility]# [id number] [address] TO WHOM IT MAY CONCERN: This is to certify that Mr. Nathalia Galarza has been under my care for injury and was unable to work from 08/29/18 through 09/12/18. Sincerely yours, Mary Goncalves PA-C Encounter Status:Closed by MARY CHANCE on 08/29/18 PROGRESS Observed: 07/04/2018 Status: COMPLETED Source: [place] 4:56 PM [facility] RE[facility] O ID: [id number] Author: Juanita Moody Service: (none) Author Type: Physician Type: Progress Notes Filed: 07/04/2018 9:39 PM Note Text: Chief Complaint Patient presents with: Recheck: 4 weeks HTN HPI Nathalia Galarza is a 28 year old male who presents here today for Above Complaints.. Patient diagnosed with HTN and placed on lisinopril. No issues with medication. Past medical history, appointments, medications, allergies reviewed. Previous Medical History PAST MEDICAL HISTORY Diagnosis Date - Essential hypertension 06/07/2018 Previous Surgical History PAST SURGICAL HISTORY Procedure Laterality Date - APPENDECTOMY HX 05/28/2016 Family History FAMILY HISTORY Problem Relation Age of Onset - Hypertension Mother - Hypertension Father - Prostate Cancer Paternal Grandfather 70 - Ovarian cancer Maternal Aunt - Diabetes Maternal Aunt Patient Allergies ALLERGIES Allergen Reactions - Ibuprofen Hives Current Medications Current Outpatient Prescriptions on File Prior to Visit: lisinopril (ZESTRIL, PRINIVIL) 10 mg tablet Take 1 tablet by mouth once daily. No current facility-administered medications on file prior to visit. Social History Social History Marital status: Spouse name: Years of education: Number of children: Social History Main Topics Smoking status: Never Smoker Smokeless tobacco: Never Used Alcohol use: No Drug use: No Sexual activity: Yes Partners with: Female control/protection: Pill Review of Symptoms REVIEW OF SYSTEMS RESPIRATORY: Negative for cough, hemoptysis, wheezing, COPD, dyspnea or shortness of breath CARDIOVASCULAR: Negative for chest pain, leg swelling, hypertension, CHF or palpitations NEURO: No history of syncope, paralysis, seizures or tremors. Has had a few headaches. EXAM: BP 142/84 (BP Site: Right Arm, BP Position: Sitting, BP Cuff Size: Large Adult) Pulse 80 Resp 14 Wt 107 kg (236 lb) BMI 32.01 kg/m? Last 5 Encounter BP Readings: Date: BP: 07/04/2018 118/78 06/07/2018 142/96 General Appearance: Well appearing, alert, in no acute distress, well-hydrated, well nourished.. Neck: Supple, no adenopathy; thyroid symmetric, normal size, no bruits. Lungs: Lungs clear to auscultation. No wheezing, rhonchi, rales. Heart: RRR without murmur, gallop, or rubs. No ectopy. Extremities: No deformities, edema. Health Maintenance List BLOOD PRESSURE CONTROLLED due on 2009 DTAP,TDAP,TD(1 - Tdap) due on 2010 INFLUENZA(1) due on 07/21/2018 ANNUAL PCP TEAM CHRONIC DISEASE VISIT due on 06/07/2019 Data reviewed Component Latest Ref Rng AND Units 06/07/2018 Protein, Total 6.3 - 8.0 g/dL 7.6 Albumin 3.9 - 4.9 g/dL 4.5 Calcium 8.5 - 10.2 mg/dL 9.7 Bilirubin, Total 0.2 - 1.3 mg/dL 0.4 Alkaline Phosphatase 36 - 108 U/L 69 AST 14 - 40 U/L 28 Glucose 74 - 99 mg/dL 84 BUN 9 - 24 mg/dL 10 Creatinine 0.73 - 1.22 mg/dL 1.08 Sodium 136 - 144 mmol/L 137 Potassium 3.7 - 5.1 mmol/L 4.0 Chloride 97 - 105 mmol/L 100 CO2 22 - 30 mmol/L 28 Anion Gap 9 - 18 mmol/L 9 ALT 10 - 54 U/L 39 eGFR- >60 eGFR-All Other Races . >60 Color Yellow Yellow Clarity Clear Cloudy (A) Glucose, Urine Negative mg/dL Negative Bilirubin, Urine Negative Negative Ketones, Urine Negative Negative Specific [place], Ur 1.005 - 1.030 1.025 Hemoglobin/Blood,Ur Negative Negative pH, Urine 4.5 - 8.0 6.0 Protein, Urine Negative mg/dL Negative Urobilinogen Normal Normal Nitrites Negative Negative Leukest Negative Negative Comments SEE COMMENT Urine Haresh Comment SEE COMMENT WBC, Urine 0 - 5 /HPF 0-5 RBC, Urine 0 - 3 /HPF 0-3 Crystal 0 /HPF SEE COMMENT (A) Cholesterol, Total <200 mg/dL 206 (H) Triglyceride <150 mg/dL 153 (H) HDL Cholesterol >39 mg/dL 46 LDL Cholesterol <100 mg/dL 129 (H) Non HDL Cholesterol <130 mg/dL 160 (H) Fasting Time hrs 14 VLDL Cholesterol <30 mg/dL 31 (H) TC:HDL Ratio <5.10 4.48 LDL:HDL Ratio <2.54 2.80 (H) Hemoglobin A1C 4.3 - 5.6 % 5.8 (H) Estimated Average Glucose mg/dL 120 A/P ASSESSMENT/PLAN: 1. Essential hypertension - ICD9: 401.9, ICD10: I10 (primary diagnosis) - good control Improved control. Parameters of monitoring explained to patient. - Continue current medication(s) - Recommended regular aerobic exercise. - Recommend home blood pressure monitoring, to bring results in on next visit - Goal of BP <140/90 2. Elevated hemoglobin A1c - ICD9: 790.29, ICD10: R73.09 - discussed tania dietary changes and weight loss. - Recheck A1c prior to next visit. F/u 4 months check A1c prior Juanita Moody MD CNOV Observed: 07/04/2018 Status: COMPLETED Source: [place] 4:20 PM [facility] REPOSITORY [facility]AL[facility] ([id number]) 1990 M Date Time Provider Department 07/04/18 4:20 PM JUANITA MOODY During your visit today, we recorded the following information about you: Pulse Respiration Blood pressure Weight 80/minute 14/minute 118/78 107 kg Juanita Moody MD 07/04/2018 9:39 PM Signed Chief Complaint Patient presents with: Recheck: 4 weeks HTN HPI Nathalia Galarza is a 28 year old male who presents here today for Above Complaints.. Patient diagnosed with HTN and placed on lisinopril. No issues with medication. Past medical history, appointments, medications, allergies reviewed. Previous Medical History PAST MEDICAL HISTORY Diagnosis Date - Essential hypertension 06/07/2018 Previous Surgical History PAST SURGICAL HISTORY Procedure Laterality Date - APPENDECTOMY HX 05/28/2016 Family History FAMILY HISTORY Problem Relation Age of Onset - Hypertension Mother - Hypertension Father - Prostate Cancer Paternal Grandfather 70 - Ovarian cancer Maternal Aunt - Diabetes Maternal Aunt Patient Allergies ALLERGIES Allergen Reactions - Ibuprofen Hives Current Medications Current Outpatient Prescriptions on File Prior to Visit: lisinopril (ZESTRIL, PRINIVIL) 10 mg tablet Take 1 tablet by mouth once daily. No current facility-administered medications on file prior to visit. Social History Social History Marital status: Spouse name: Years of education: Number of children: Social History Main Topics Smoking status: Never Smoker Smokeless tobacco: Never Used Alcohol use: No Drug use: No Sexual activity: Yes Partners with: Female control/protection: Pill Review of Symptoms REVIEW OF SYSTEMS RESPIRATORY: Negative for cough, hemoptysis, wheezing, COPD, dyspnea or shortness of breath CARDIOVASCULAR: Negative for chest pain, leg swelling, hypertension, CHF or palpitations NEURO: No history of syncope, paralysis, seizures or tremors. Has had a few headaches. EXAM: BP 142/84 (BP Site: Right Arm, BP Position: Sitting, BP Cuff Size: Large Adult) Pulse 80 Resp 14 Wt 107 kg (236 lb) BMI 32.01 kg/m? Last 5 Encounter BP Readings: Date: BP: 07/04/2018 118/78 06/07/2018 142/96 General Appearance: Well appearing, alert, in no acute distress, well-hydrated, well nourished.. Neck: Supple, no adenopathy; thyroid symmetric, normal size, no bruits. Lungs: Lungs clear to auscultation. No wheezing, rhonchi, rales. Heart: RRR without murmur, gallop, or rubs. No ectopy. Extremities: No deformities, edema. Health Maintenance List BLOOD PRESSURE CONTROLLED due on 2009 DTAP,TDAP,TD(1 - Tdap) due on 2010 INFLUENZA(1) due on 07/21/2018 ANNUAL PCP TEAM CHRONIC DISEASE VISIT due on 06/07/2019 Data reviewed Component Latest Ref Rng AND Units 06/07/2018 Protein, Total 6.3 - 8.0 g/dL 7.6 Albumin 3.9 - 4.9 g/dL 4.5 Calcium 8.5 - 10.2 mg/dL 9.7 Bilirubin, Total 0.2 - 1.3 mg/dL 0.4 Alkaline Phosphatase 36 - 108 U/L 69 AST 14 - 40 U/L 28 Glucose 74 - 99 mg/dL 84 BUN 9 - 24 mg/dL 10 Creatinine 0.73 - 1.22 mg/dL 1.08 Sodium 136 - 144 mmol/L 137 Potassium 3.7 - 5.1 mmol/L 4.0 Chloride 97 - 105 mmol/L 100 CO2 22 - 30 mmol/L 28 Anion Gap 9 - 18 mmol/L 9 ALT 10 - 54 U/L 39 eGFR- >60 eGFR-All Other Races . >60 Color Yellow Yellow Clarity Clear Cloudy (A) Glucose, Urine Negative mg/dL Negative Bilirubin, Urine Negative Negative Ketones, Urine Negative Negative Specific [place], Ur 1.005 - 1.030 1.025 Hemoglobin/Blood,Ur Negative Negative pH, Urine 4.5 - 8.0 6.0 Protein, Urine Negative mg/dL Negative Urobilinogen Normal Normal Nitrites Negative Negative Leukest Negative Negative Comments SEE COMMENT Urine Haresh Comment SEE COMMENT WBC, Urine 0 - 5 /HPF 0-5 RBC, Urine 0 - 3 /HPF 0-3 Crystal 0 /HPF SEE COMMENT (A) Cholesterol, Total <200 mg/dL 206 (H) Triglyceride <150 mg/dL 153 (H) HDL Cholesterol >39 mg/dL 46 LDL Cholesterol <100 mg/dL 129 (H) Non HDL Cholesterol <130 mg/dL 160 (H) Fasting Time hrs 14 VLDL Cholesterol <30 mg/dL 31 (H) TC:HDL Ratio <5.10 4.48 LDL:HDL Ratio <2.54 2.80 (H) Hemoglobin A1C 4.3 - 5.6 % 5.8 (H) Estimated Average Glucose mg/dL 120 A/P ASSESSMENT/PLAN: 1. Essential hypertension - ICD9: 401.9, ICD10: I10 (primary diagnosis) - good control Improved control. Parameters of monitoring explained to patient. - Continue current medication(s) - Recommended regular aerobic exercise. - Recommend home blood pressure monitoring, to bring results in on next visit - Goal of BP <140/90 2. Elevated hemoglobin A1c - ICD9: 790.29, ICD10: R73.09 - discussed tania dietary changes and weight loss. - Recheck A1c prior to next visit. F/u 4 months check A1c prior MD Juanita Lutz MD 07/04/2018 5:06 PM Signed Please get none fasting lab on or after 10/19/2018 prior to next visit. Referring Provider: JUANITA MOODY [[id number]] Allergies As of Date: 07/04/2018 Noted Allergy Reaction IBUPROFEN 06/07/2018 4 - Hives Date Reviewed: 07/04/2018 Reviewed by: Juanita Moody - Fully Assessed Reason for Visit: Recheck [92] Cmt: 4 weeks HTN Reason For Visit History Recorded Primary Visit Diagnosis:Essential hypertension [I10] Other Visit Diagnosis:Elevated hemoglobin A1c [R73.09] Order(s):HGB A1C [NFNON0B] Order #: [id number] FUTURE Prescriptions as of 07/04/2018 Sig: LISINOPRIL 10 MG TABLET Take 1 tablet by mouth once d* Problem List As Of Date 07/04/2018 Noted Resolved Encounter for screening for diabetes mellitus [*INVALID FOR* Essential hypertension [I10] INVALID FOR* Priority: A Elevated hemoglobin A1c [R73.09] INVALID FOR* Other instructions from your clinician: Please get none fasting lab on or after 10/19/2018 prior to next visit. Disposition: Return in about 4 months (around 11/03/2018) for routine. Follow-up and Disposition History Recorded Encounter Status:Closed by JUANITA MOODY on 07/04/18 URINALYSIS WITH Collected: 06/07/2018 Status: F Source: [facility] 11:48 AM [facility] REPOSITORY TYPE CODE TESTS RESULT OUT OF RANGE REFERENCE UNITS LAB UCOL Yellow Color Yellow LAB [facility] Clear Clarity Abnormal Cloudy Alert LAB UGLUC Negative mg/dL Glucose, Urine Negative LAB UBIL Negative Bilirubin, Urine Negative LAB UKET Negative Ketones, Urine Negative LAB [facility] 1.005-1.030 Specific [place], Ur 1.025 LAB UHGB Negative Hemoglobin/Blood, Negative Ur LAB UPH 4.5-8.0 pH 6.0 LAB UPROT Negative mg/dL Protein, Urine Negative LAB UUROB Normal Urobilinogen Normal LAB UNITR Negative Nitrites Negative LAB ULKEST Negative Leukest Negative LAB UCOM Comments SEE COMMENT Result Comment: N/A LAB UMCOM Urine SEE Haresh Comment COMMENT Result Comment: N/A LAB UWBC 0-5 /HPF WBC 0-5 LAB URBC 0-3 /HPF RBC 0-3 LAB UCRYS 0 /HPF Abnormal Alert Crystals SEE COMMENT Result Comment: Few Calcium Oxalate Crystal Performed By: #### UAWMIC #### [facility] [address] [place] [address] COMP METABOLIC PANEL Collected: 06/07/2018 Status: F Source: [place] 11:43 AM [facility] REPOSITORY TYPE CODE TESTS RESULT OUT OF REFERENCE UNITS RANGE LAB TP 6.3-8.0 g/dL Protein, Total 7.6 LAB ALB 3.9-4.9 g/dL Albumin 4.5 LAB CA 8.5-10.2 mg/dL Calcium, Total 9.7 LAB TBIL 0.2-1.3 mg/dL Bilirubin, Total 0.4 LAB ALKP 36-108 U/L Alkaline Phosphatase 69 LAB AST 14-40 U/L AST 28 LAB GLU 74-99 mg/dL Glucose 84 Result Comment: The [place] [employer] (ADA) provides guidance for cutoff values for fasting glucose and random glucose. The ADA defines fasting as no caloric intake for at least 8 hours. Fas ting plasma glucose results between 100 to 125 mg/dL indicate increased risk for diabetes (prediabetes). Fasting plasma glucose results greater than or equal to 126 mg/dL meet the criteria for diagnosis of diabetes. In the absence of unequivocal hyperglycemia, results should be confirmed by repeat testing. In a patient with classic symptoms of hyperglycemia or hyperglycemic crisis, random plasma glucose results greater than or equal to 200 mg/dL meet the criteria for diagnosis of diabetes. Reference: Standards of Medical Care in Diabetes 2016, [place] [employer]. Diabetes Care. 2016.39(Suppl 1). LAB BUN 9-24 mg/dL BUN 10 LAB CRET 0.73-1.22 mg/dL Creatinine 1.08 LAB NA 136-144 mmol/L Sodium 137 LAB K 3.7-5.1 mmol/L Potassium 4.0 LAB CL 97-105 mmol/L Chloride 100 LAB CO2 22-30 mmol/L CO2 28 LAB AGAP 9-18 mmol/L Anion Gap 9 LAB ALT 10-54 U/L ALT 39 LAB GFRAA eGFR- Amer. >60 LAB GFRNAA . eGFR-All Other Races >60 Result Comment: eGFR (Estimated GFR) Units of measure: mL/min/1.73 meters squared eGFR is derived from the reexpressed MDRD Study equation using the following parameters: serum creatinine, age, gender and race. The creatinine assay has been calibrated to be traceable to IDMS. An eGFR <60 mL/min/1.73m2 for >3 months is consistent with chronic kidney disease. Refer to KDOQI guidelines for clinical interpretation. In patients with unstable renal function, e.g. those with acute kidney injury, the eGFR may not accurately reflect actual GFR. Performed By: #### CMP, LIPB, HBA1C #### [facility] [address] [address] LIPID PANEL, BASIC Collected: 06/07/2018 Status: F Source: [place] 11:43 AM [facility] REPOSITORY TYPE CODE TESTS RESULT OUT OF REFERENCE UNITS RANGE LAB CHOL <200 mg/dL Cholesterol High 206 Result Comment: <200 mg/dL, Desirable 200-239 mg/dL, Borderline high >239 mg/dL, High LAB TRIGLY <150 mg/dL Triglyceride High 153 Result Comment: <150 mg/dL, Normal 150-199 mg/dL, Borderline high 200-499 mg/dL, High >499 mg/dL, Very high LAB HDL >39 mg/dL HDL-Cholesterol 46 Result Comment: 40-59 mg/dL, Acceptable >59 mg/dL, High: Negative risk factor for coronary heart disease <40 mg/dL, Low: Positive risk factor for coronary heart disease LAB LDL <100 mg/dL LDL-Cholesterol High 129 Result Comment: <100 mg/dL, Optimal 100-129 mg/dL, Near optimal/above optimal 130-159 mg/dL, Borderline high 160-189 mg/dL, High >189 mg/dL, Very high Secondary prevention optimal LDL Cholesterol levels are recommended to be < 70 mg/dL LAB NONHDL <130 mg/dL Non HDL High Cholesterol 160 Result Comment: <130 mg/dL, Optimal 130-159 mg/dL, Near optimal/above optimal 160-189 mg/dL, Borderline high 190-219 mg/dL, High >219 mg/dL, Very high Secondary prevention optimal non HDL Cholesterol levels are recommended to be < 100 mg/dL LAB FT hrs Fasting Time 14 LAB VLDL <30 mg/dL High VLDL Cholesterol 31 LAB TCHDL <5.10 TC:HDL Ratio 4.48 LAB LDLHDL <2.54 High LDL:HDL Ratio 2.80 Result Comment: Reference: 1. National Cholesterol Education Program ATP III Guideline At-A-Glance Quick Desk Reference: National Heart, Lung, and Blood [place]. National Institutes of Health. 2001: NIH Publication No. 01-3305. 2. An International Atherosclerosis Society position paper: global recommendations for the management of dyslipidemia: executive summary, Atherosclerosis. 2014: 232(2):410-413. Performed By: #### CMP, LIPB, HBA1C #### [facility] [address] [address] HEMOGLOBIN A1C Collected: 06/07/2018 Status: F Source: [place] 11:43 AM [facility] REPOSITORY TYPE CODE TESTS RESULT OUT OF REFERENCE UNITS RANGE LAB HGBA1C 4.3-5.6 % High Hemoglobin A1c 5.8 LAB HBA0 mg/dL Est. Average Glucose 120 Result Comment: eAG: (Estimated average glucose) is a calculated value from HgbA1c and is traveling sales representative of the average blood glucose level in the last 2-3 month period. Performed By: #### CMP, LIPB, HBA1C #### [facility] [address] [id number] PROGRESS Observed: 06/07/2018 Status: COMPLETED Source: [place] 11:02 AM [facility] REPOSITORY HNO ID: [id number] Author: Juanita Moody Service: (none) Author Type: Physician Type: Progress Notes Filed: 06/07/2018 11:36 AM Note Text: Chief Complaint Patient presents with: Blood Pressure: elevated eye apt 05/29/18 HPI Nathalia Galarza is a 28 year old male who presents here today for Above Complaints.. Patient has never been diagnosed with HTN and both parents have it. Thinks when he has been to an UC in the past year he was told it was elevated. Was [facility] eye [facility] last week for a routine eye exam and was informed his BP was elevated and noted to have a small hemorrhage on the left with retinal exam Past medical history, appointments, medications, allergies reviewed. Previous Medical History No past medical history on file. Previous Surgical History PAST SURGICAL HISTORY Procedure Laterality Date - APPENDECTOMY HX 05/28/2016 Family History FAMILY HISTORY Problem Relation Age of Onset - Hypertension Mother - Hypertension Father - Prostate Cancer Paternal Grandfather 70 - Ovarian cancer Maternal Aunt - Diabetes Maternal Aunt Patient Allergies ALLERGIES Allergen Reactions - Ibuprofen Hives Current Medications No current outpatient prescriptions on file prior to visit. No current facility-administered medications on file prior to visit. Social History Social History Marital status: Spouse name: Years of education: Number of children: Social History Main Topics Smoking status: Never Smoker Smokeless tobacco: Never Used Alcohol use: No Drug use: No Sexual activity: Yes Partners with: Female control/protection: Pill Review of Symptoms REVIEW OF SYSTEMS RESPIRATORY: Negative for cough, hemoptysis, wheezing, COPD, dyspnea or shortness of breath CARDIOVASCULAR: Negative for chest pain, leg swelling, hypertension, CHF or palpitations. If stressed will get some chest pain but no with physical activity or any radiation of pain NEURO: No history of syncope, paralysis, seizures or tremors. Has been getting frequent headaches. EXAM: BP 142/96 (BP Site: Right Arm, BP Position: Sitting, BP Cuff Size: Large Adult) Pulse 72 Resp 14 Ht 182.9 cm (6') Wt 107 kg (236 lb) BMI 32.01 kg/m? General Appearance: Well appearing, alert, in no acute distress, well-hydrated, well nourished.. Neck: Supple, no adenopathy; thyroid symmetric, normal size, no bruits. Lungs: Lungs clear to auscultation. No wheezing, rhonchi, rales. Heart: RRR without murmur, gallop, or rubs. No ectopy. Abdomen: Normal abdominal exam, Abdomen soft, non-tender. Bowel sounds normal. No masses, organomegaly. Extremities: No deformities, edema. Peripheral Pulses: Normal. Health Maintenance List DTAP,TDAP,TD(1 - Tdap) due on 2010 INFLUENZA(1) due on 07/21/2018 Data reviewed A/P ASSESSMENT/PLAN: 1. Essential hypertension - ICD9: 401.9, ICD10: I10 (primary diagnosis) - poor control - newly diagnosed - Begin lisinopril (Zestril/Prinivil) - Recommended regular aerobic exercise. - Recommend home blood pressure monitoring, to bring results in on next visit - Goal of BP <130/80 - COMP METABOLIC PANEL - LIPID PANEL BASIC - URINALYSIS WITH MICROSCOPIC - Discussed life style changes, reduced salt, increased walking - Discussed possible side affects of lisinopril. 2. Encounter for screening for diabetes mellitus - ICD9: V77.1, ICD10: Z13.1 Check - HGB A1C Signed Prescriptions Disp Refills lisinopril (ZESTRIL, PRINIVIL) 10 mg tablet 30 tablet 5 Sig: Take 1 tablet by mouth once daily. f/u 4 weeks HTN check (time into room was 10:57 AM and time out of room was 11:31 AM (total face to face time was 34 min) Juanita Moody MD CNOV Observed: 06/07/2018 Status: COMPLETED Source: [place] 10:40 AM [facility] REPOSITORY [facility] NATHALIA GALARZA ([id number]) 1990 M Date Time Provider Department 06/07/18 10:40 AM [facility]ANITA MOODY [facility] During your visit today, we recorded the following information about you: Pulse Respiration Blood pressure Weight 72/minute 14/minute 142/96 107 kg Height 1.829 m Juanita Moody MD 06/07/2018 11:36 AM Signed Chief Complaint Patient presents with: Blood Pressure: elevated eye apt 05/29/18 HPI Nathalia Galarza is a 28 year old male who presents here today for Above Complaints.. Patient has never been diagnosed with HTN and both parents have it. Thinks when he has been to an UC in the past year he was told it was elevated. Was at the eye doctors last week for a routine eye exam and was informed his BP was elevated and noted to have a small hemorrhage on the left with retinal exam Past medical history, appointments, medications, allergies reviewed. Previous Medical History No past medical history on file. Previous Surgical History PAST SURGICAL HISTORY Procedure Laterality Date - APPENDECTOMY HX 05/28/2016 Family History FAMILY HISTORY Problem Relation Age of Onset - Hypertension Mother - Hypertension Father - Prostate Cancer Paternal Grandfather 70 - Ovarian cancer Maternal Aunt - Diabetes Maternal Aunt Patient Allergies ALLERGIES Allergen Reactions - Ibuprofen Hives Current Medications No current outpatient prescriptions on file prior to visit. No current facility-administered medications on file prior to visit. Social History Social History Marital status: Spouse name: Years of education: Number of children: Social History Main Topics Smoking status: Never Smoker Smokeless tobacco: Never Used Alcohol use: No Drug use: No Sexual activity: Yes Partners with: Female control/protection: Pill Review of Symptoms REVIEW OF SYSTEMS RESPIRATORY: Negative for cough, hemoptysis, wheezing, COPD, dyspnea or shortness of breath CARDIOVASCULAR: Negative for chest pain, leg swelling, hypertension, CHF or palpitations. If stressed will get some chest pain but no with physical activity or any radiation of pain NEURO: No history of syncope, paralysis, seizures or tremors. Has been getting frequent headaches. EXAM: BP 142/96 (BP Site: Right Arm, BP Position: Sitting, BP Cuff Size: Large Adult) Pulse 72 Resp 14 Ht 182.9 cm (6') Wt 107 kg (236 lb) BMI 32.01 kg/m? General Appearance: Well appearing, alert, in no acute distress, well-hydrated, well nourished.. Neck: Supple, no adenopathy; thyroid symmetric, normal size, no bruits. Lungs: Lungs clear to auscultation. No wheezing, rhonchi, rales. Heart: RRR without murmur, gallop, or rubs. No ectopy. Abdomen: Normal abdominal exam, Abdomen soft, non-tender. Bowel sounds normal. No masses, organomegaly. Extremities: No deformities, edema. Peripheral Pulses: Normal. Health Maintenance List DTAP,TDAP,TD(1 - Tdap) due on 2010 INFLUENZA(1) due on 07/21/2018 Data reviewed A/P ASSESSMENT/PLAN: 1. Essential hypertension - ICD9: 401.9, ICD10: I10 (primary diagnosis) - poor control - newly diagnosed - Begin lisinopril (Zestril/Prinivil) - Recommended regular aerobic exercise. - Recommend home blood pressure monitoring, to bring results in on next visit - Goal of BP <130/80 - COMP METABOLIC PANEL - LIPID PANEL BASIC - URINALYSIS WITH MICROSCOPIC - Discussed life style changes, reduced salt, increased walking - Discussed possible side affects of lisinopril. 2. Encounter for screening for diabetes mellitus - ICD9: V77.1, ICD10: Z13.1 Check - HGB A1C Signed Prescriptions Disp Refills lisinopril (ZESTRIL, PRINIVIL) 10 mg tablet 30 tablet 5 Sig: Take 1 tablet by mouth once daily. f/u 4 weeks HTN check (time into room was 10:57 AM and time out of room was 11:31 AM (total face to face time was 34 min) MD Juanita Lutz MD 06/07/2018 11:23 AM Signed Please get fasting labs done Referring Provider: SELF [[id number]] Allergies As of Date: 06/07/2018 Noted Allergy Reaction IBUPROFEN 06/07/2018 4 - Hives Date Reviewed: 06/07/2018 Reviewed by: Juanita Moody - Fully Assessed Reason for Visit: Blood Pressure [15] Cmt: elevated eye apt 05/29/18 Primary Visit Diagnosis:Essential hypertension [I10] Other Visit Diagnosis:Encounter for screening for diabetes mellitus [Z13.1] Order(s):COMP METABOLIC PANEL [SQCMP] Order #: [id number] FUTURE HGB A1C [HEOQW4K] Order #: [id number] FUTURE LIPID PANEL BASIC [SQLIPB] Order #: [id number] FUTURE URINALYSIS WITH MICROSCOPIC [SQUAWMIC] Order #: [id number] FUTURE lisinopril (ZESTRIL, PRINIVIL) 10 mg tabletTake 1 tablet by mouth once daily.Disp: 30 tabletRfl: 5 Prescriptions as of 06/07/2018 Sig: LISINOPRIL 10 MG TABLET Take 1 tablet by mouth once d* Problem List As Of Date 06/07/2018 Noted Resolved Encounter for screening for diabetes mellitus [*INVALID FOR* Essential hypertension [I10] INVALID FOR* Priority: A Other instructions from your clinician: Please get fasting labs done Prescriptions ordered this encounter Disp Refills Start End LISINOPRIL 10 MG TABLET 30 t* 5 06/07/2018 Route: ORAL Sig: Take 1 tablet by mouth once daily. Disposition: Return in about 4 weeks (around 07/05/2018) for HTN check with Dr. Moody. Follow-up and Disposition History Recorded Encounter Status:Closed by JUANITA MOODY on 06/07/18 ALLERGIES ALLERGIES DATE TYPE / CODE NAME / CODE REACTION SEVERITY SOURCE 12/11/2018 Drug ibuprofen/[id number] Hives Unknown [facility] Allergy/[phone](RXNORM) [facility] 043105(SNOM Repository ED CT) 06/07/2018 DRUG IBUPROFEN HIVES [facility] INGREDI/[address] [place] 945551(SNOM Repository ED CT) ENCOUNTERS ENCOUNTERS ADMIT/DISCHARGE ACCOUNT ADMITTING ENCOUNTER LOCATION SOURCE NUMBER CLASS 12/11/2018/12/11/19 [id number] Emergency [address] ing:ED Repository 11/28/2018/11/29/19 [id number] Ambulatory [address] [place] Repository 11/07/2018/11/08/20 [id number] Ambulatory [address] Repository 11/05/2018/11/05/20 [id number] Ambulatory [address] Repository 08/29/2018/08/29/20 [id number] Ambulatory [address] [place] Repository 08/29/2018/08/30/20 [id number] Ambulatory [address] Repository 07/04/2018/07/06/20 [id number] Ambulatory [address] [place] Repository 06/07/2018/06/07/20 [id number] Ambulatory [address] [place] Repository 06/07/2018/06/08/20 [id number] Ambulatory [address] Repository PAYERS PAYERS ENCOUNTER GUARANTOR PAYER SUBSCRIBER SOURCE 12/11/2018 NATHALIA E Primary NATHALIA [id number] [employer] Insurance:MEDICAL JAQUETDOB: [facility] [id number] [address]Eph: (330) Number: Repository [phone] HP) [id number] Date:[id number] [address]YJ: 12/11/2018 Secondary NOT GIVENUNK [place] Insurance:[facility]: Effective Repository Date:2018-12-11
== END 2018-12-11 23:21 | disposition home or self-care (01) ==
PROVIDERS: Emergency Provider Emergency Medicine; Family Provider Family Medicine; PCP Family Medicine
DX: T15.01XA Foreign body in cornea, right eye, initial encounter (principal); X58.XXXA Exposure to other specified factors, initial encounter; Y93.89 Activity, other specified; Y92.9 Unspecified place or not applicable; I10 Essential (primary) hypertension
CPT/HCPCS: 65220; 10120; 90471; 90715; 99284; A4216